=== PATIENT | male | born 1955 | race Caucasian/White ===

== ENCOUNTER → 2017-02-05 | Outpatient (CLI) | payer OTHER ==
[~2017-02-05] MED LIST: ASPI-621 PO; HYDR1TAB20 PO; IRON PO; NAPR500T4 PO; OMEP-110 PO; OXYC1TAB9 PO; RABE20TA26 PO; [UNRECOGNIZED DRUG - OTHER] TP
[2017-02-05 09:36] LABS: HEMATOCRIT 46.5 % (39.2-51.8); HEMOGLOBIN 15.9 g/dL (13.7-18.0); WHITE BLOOD COUNT 5.6 x10^3/uL (3.4-10)
[2017-02-05 09:39] LABS: BLOOD UREA NITROGEN 17 mg/dL (7-18)
== END | disposition home or self-care (01) ==
LOC: STAR 08:32
PROVIDERS: ATTEND Orthopaedic Surgery
DX: Z01.818 Encounter for other preprocedural examination (principal); M17.12 Unilateral primary osteoarthritis, left knee; K21.9 Gastro-esophageal reflux disease without esophagitis
CPT/HCPCS: 36415; 80048; 81003; 85025; 87081; 93005

== ENCOUNTER 2017-02-16 07:28 | Inpatient (IN) | payer OTHER ==
[~2017-02-16] VITALS: Ht 182.9 cm; Wt 114.0 kg
[~2017-02-16 07:28] MED LIST changes: -ASPI-621 PO; -OXYC1TAB9 PO
[2017-02-16] MEDS ORDERED: VANCOMYCIN PER PHARMACY MC STA (07:37)
[2017-02-16] MEDS ORDERED: LACTATED RINGERS 1,000 ML IV SCH (07:52)
[2017-02-16] MEDS ORDERED: SODIUM CHLORIDE 0.9% 100 ML ONE (08:01)
[2017-02-16] MEDS ORDERED: TRANEXAMIC ACID 100 MG/ML, 10ML ONE (08:01)
[2017-02-16] MEDS ORDERED: morphine SULFATE/PF 1 MG/ML, 10ML ONE (08:01)
[2017-02-16] MEDS ORDERED: EPINEPHRINE 1 MG/ML, 1ML ONE (08:01)
[2017-02-16] MEDS ORDERED: KETOROLAC 60 MG/2 ML ONE (08:01)
[2017-02-16] MEDS ORDERED: ROPivacaine/PF 0.2%, 10 ML ONE ×2 (08:03→10:02)
[2017-02-16 08:32] VITALS: BP 145/93
[2017-02-16] MEDS ORDERED: FENTANYL PF 250 MCG/5ML ONE (08:51)
[2017-02-16] MEDS ORDERED: MIDAZOLAM 1 MG/ML, 2ML ONE (08:51)
[2017-02-16] MEDS ORDERED: VANCOMYCIN 2,000 MG in SODIUM CHLORIDE 0.9% 500 ML IV ONE (09:00)
[2017-02-16] MEDS ORDERED: NEOSTIGMINE 1 MG/ML, 10ML ONE (09:30)
[2017-02-16] MEDS ORDERED: GLYCOPYRROLATE 0.2MG/1ML, 5ML ONE (09:30)
[2017-02-16] MEDS ORDERED: ONDANSETRON 2MG/ML, 2ML ONE (09:31)
[2017-02-16] MEDS ORDERED: CEFAZOLIN 1,000 MG ONE ×2 (09:31)
[2017-02-16] MEDS ORDERED: PROPOFOL 10 MG/ML, 20ML ONE (09:31)
[2017-02-16] MEDS ORDERED: ROCURONIUM 10 MG/ML,10ML ONE (09:31)
[2017-02-16] MEDS ORDERED: DEXAMETHASONE 4 MG/ML, 1ML ONE (09:31)
[2017-02-16] MEDS ORDERED: METOCLOPRAMIDE 5 MG/ML, 2ML ONE (10:03)
[2017-02-16] MEDS ORDERED: EPHEDRINE 50 MG/ML, 1ML IVPush PRN (11:00)
[2017-02-16] MEDS ORDERED: ALBUTEROL SULFATE 2.5 MG/3 ML NPPB PRN (11:00)
[2017-02-16] MEDS ORDERED: ONDANSETRON 2MG/ML, 2ML IVPush PRN ×2 (11:00→13:00)
[2017-02-16] MEDS ORDERED: FENTANYL PF 100 MCG/2ML IV PRN (11:00)
[2017-02-16] MEDS ORDERED: MEPERIDINE/PF 25MG/0.5ML IVPush PRN (11:00)
[2017-02-16] MEDS ORDERED: METOPROLOL 1 MG/ML, 5ML IV PRN (11:00)
[2017-02-16] MEDS ORDERED: OXYcodone 5 MG/5 ML ORAL.SOL UDC PO PRN (11:00)
[2017-02-16] MEDS ORDERED: hydrALAzine 20 MG/ML, 1ML IV PRN (11:00)
[2017-02-16] MEDS ORDERED: PROMETHAZINE 25 MG/ML, 1ML IV PRN (11:00)
[2017-02-16] MEDS ORDERED: HYDROmorphone 1 MG/ML, 1ML IV PRN (11:00)
[2017-02-16] MEDS ORDERED: LABETALOL 5MG/ML, 20ML IV PRN (11:00)
[2017-02-16] MEDS ORDERED: OXYcodone 5 MG/5 ML ORAL.SOL UDC ONE (11:35)
[2017-02-16] MEDS ORDERED: ACETAMINOPHEN 650 MG/20.3 ML UDC ONE (11:35)
[2017-02-16] MEDS ORDERED: ACETAMINOPHEN 650 MG/20.3 ML UDC PO PRN (12:00)
[2017-02-16] MEDS ORDERED: SENNA/DOCUSATE TABLET PO PRN (13:00)
[2017-02-16] MEDS ORDERED: DIAZEPAM 5 MG TABLET PO PRN (13:00)
[2017-02-16] MEDS ORDERED: HYDROcodone/APAP 7.5-325MG/15ML UDC PO PRN (13:00)
[2017-02-16] MEDS ORDERED: SCOPOLAMINE 1MG PATCH TD SCH (13:00)
[2017-02-16] MEDS ORDERED: BISACODYL 10 MG SUPP PR PRN (13:00)
[2017-02-16] MEDS ORDERED: ZOLPIDEM 5MG TABLET PO PRN (13:00)
[2017-02-16] MEDS ORDERED: ACETAMINOPHEN 325 MG TABLET PO PRN (13:00)
[2017-02-16] MEDS ORDERED: ALUMINUM/MAG/SIMETHICONE 30 ML UDC PO PRN (13:00)
[2017-02-16] MEDS ORDERED: DIPHENHYDRAMINE 25 MG CAPSULE PO PRN (13:00)
[2017-02-16] MEDS ORDERED: MAGNESIUM HYDROXIDE 8%, 30ML UDC PO PRN (13:00)
[2017-02-16 14:36] VITALS: BP 130/89
[2017-02-16] MEDS: POTASSIUM CHLORIDE 10 MEQ in D5%-0.45% NACL 1,000 ML IV SCH (15:42)
[2017-02-16 20:04] VITALS: BP 113/75
[2017-02-16] MEDS: DOCUSATE 100 MG CAPSULE PO SCH (20:08)
[2017-02-16] MEDS: OXYcodone IR 5MG TABLET PO PRN (20:08)
[2017-02-16] MEDS: CEFAZOLIN PMX 1GM/50ML 50 ML IVPB SCH (20:08)
[2017-02-16] MEDS ORDERED: VANCOMYCIN PMX 1GM/200ML 200 ML IVPB ONE (21:30)
[2017-02-17] MEDS: OXYcodone IR 5MG TABLET PO PRN ×4 (00:09→12:28)
[2017-02-17 00:12] VITALS: BP 131/82
[2017-02-17] MEDS: CEFAZOLIN PMX 1GM/50ML 50 ML IVPB SCH (04:03)
[2017-02-17 04:31] VITALS: BP 112/74
[2017-02-17] MEDS ORDERED: ENOXAPARIN 30 MG/0.3 ML SQ SCH (06:00)
[2017-02-17] MEDS: DOCUSATE 100 MG CAPSULE PO SCH (07:56)
[2017-02-17 08:37] VITALS: BP 102/70
[2017-02-17] MEDS ORDERED: MULTIVITAMINS/MINERALS TABLET PO SCH (09:00)
[2017-02-17] MEDS: POTASSIUM CHLORIDE 10 MEQ in D5%-0.45% NACL 1,000 ML IV SCH (09:06)
[2017-02-17] MEDS ORDERED: KETOROLAC 30 MG/1 ML IV SCH (12:00)
[2017-02-17] MEDS ORDERED: OXYC1TAB9 PO (14:18)
[2017-02-17] MEDS ORDERED: ASPI-621 PO (14:19)
== END 2017-02-17 14:30 | disposition home or self-care (01) | DRG 470 ==
LOC: ORIP 07:28 → 4NOR 12:25
PROVIDERS: ADMIT Orthopaedic Surgery; ATTEND Orthopaedic Surgery
PROC: 0SRD0J9 Replacement of Left Knee Joint with Synthetic Substitute, Cemented, Open Approach (ICD-10-PCS; principal; 2017-02-16 10:00)
DX: M17.12 Unilateral primary osteoarthritis, left knee (principal); K21.9 Gastro-esophageal reflux disease without esophagitis; Z87.891 Personal history of nicotine dependence; Z88.8 Allergy status to other drugs, medicaments and biological substances
CPT/HCPCS: C1713; J0171; J0690; J1100; J1650; J1885; J2250; J2274; J2405; J2704; J2710; J2795; J3010; J3370; J3480; J3490; C1776; J2765; J7040; J7120

== ENCOUNTER → 2018-07-01 | Outpatient (CLI) | payer OTHER ==
[~2018-07-01] MED LIST changes: +ASPI81TA45 PO; +NAPR-685 PO; -NAPR500T4 PO; +OMEP20TA62 PO; +OXYC-432 PO; +PREG150C PO; +TRAM50TA2 PO; +iron PO
[2018-07-01 09:02] LABS: MICROSCOPIC NOT IND
[2018-07-01 09:08] LABS: CULTURE INDICATED? NO
== END | disposition home or self-care (01) ==
LOC: STAR 08:09
PROVIDERS: ATTEND Neurological Surgery
DX: Z01.818 Encounter for other preprocedural examination (principal); M47.812 Spondylosis without myelopathy or radiculopathy, cervical region; M54.17 Radiculopathy, lumbosacral region; M51.26 Other intervertebral disc displacement, lumbar region; M54.16 Radiculopathy, lumbar region
CPT/HCPCS: 72050; 81003; 93005

== ENCOUNTER 2018-07-07 11:33 | Inpatient (IN) | payer OTHER ==
[~2018-07-07] VITALS: Ht 185.4 cm; Wt 113.4 kg
[2018-07-07] MEDS ORDERED: GABAPENTIN 300 MG CAPSULE PO ONE ×2 (12:00→12:30)
[2018-07-07] MEDS ORDERED: ACETAMINOPHEN 500 MG TABLET PO ONE ×2 (12:00→12:30)
[2018-07-07] MEDS ORDERED: OXYcodone IR 5MG TABLET PO ONE ×2 (12:00→12:30)
[2018-07-07 12:03] VITALS: BP 129/87
[2018-07-07] MEDS ORDERED: LACTATED RINGERS 1,000 ML IV SCH (12:08)
[2018-07-07] MEDS ORDERED: FENTANYL PF 250 MCG/5ML ONE (13:02)
[2018-07-07] MEDS ORDERED: MIDAZOLAM 1 MG/ML, 2ML ONE (13:02)
[2018-07-07] MEDS ORDERED: MINERAL OIL 10 ML VIAL MC ONE (13:53)
[2018-07-07] MEDS ORDERED: BUPIVACAINE/EPI 0.5% 1:200K ONE (13:53)
[2018-07-07] MEDS ORDERED: THROMBIN 20,000 UNIT VIAL TP ONE ×2 (13:54→15:37)
[2018-07-07] MEDS ORDERED: BACITRACIN 50,000 UNIT ONE (13:54)
[2018-07-07] MEDS ORDERED: MICROFIBRILLAR COLLAGEN 1 GM TP ONE (13:56)
[2018-07-07] MEDS ORDERED: DEXAMETHASONE 4 MG/ML, 1ML ONE (14:21)
[2018-07-07] MEDS ORDERED: LIDOCAINE-MPF 2% ,5ML ONE (14:21)
[2018-07-07] MEDS ORDERED: ROCURONIUM 10 MG/ML,10ML ONE (14:21)
[2018-07-07] MEDS ORDERED: CEFAZOLIN 1,000 MG ONE (14:21)
[2018-07-07] MEDS ORDERED: ONDANSETRON 2MG/ML, 2ML ONE (14:21)
[2018-07-07] MEDS ORDERED: PROPOFOL 10 MG/ML, 20ML ONE (14:21)
[2018-07-07] MEDS ORDERED: SUCCINYLCHOLINE 20 MG/ML, 10ML ONE (14:21)
[2018-07-07] MEDS ORDERED: ONDANSETRON ODT 8 MG PO PRN (15:00)
[2018-07-07] MEDS ORDERED: PROMETHAZINE 25 MG/ML, 1ML IV PRN (15:00)
[2018-07-07] MEDS ORDERED: OXYcodone 5 MG/5 ML ORAL.SOL UDC PO PRN (15:00)
[2018-07-07] MEDS ORDERED: HYDROmorphone 2 MG/ML, 1ML IVPush PRN (15:00)
[2018-07-07] MEDS ORDERED: MEPERIDINE/PF 25MG/0.5ML IVPush PRN (15:00)
[2018-07-07] MEDS ORDERED: DIAZEPAM 5 MG/ML, 2ML IVPush PRN (15:00)
[2018-07-07] MEDS ORDERED: ONDANSETRON 2MG/ML, 2ML IV PRN (15:00)
[2018-07-07] MEDS: FENTANYL PF 100 MCG/2ML IV PRN ×3 (16:44→18:05)
[2018-07-07] MEDS ORDERED: methylPREDNISolone SOD SUCC 125 MG/2 ML IVPush ONE (16:46)
[2018-07-07] MEDS ORDERED: OXYcodone 5 MG/5 ML ORAL.SOL UDC ONE (17:49)
[2018-07-07] MEDS ORDERED: FENTANYL PF 100 MCG/2ML ONE (17:49)
[2018-07-07] MEDS ORDERED: HYDROmorphone 1 MG/ML, 1ML VIAL ONE (18:06)
[2018-07-07] MEDS ORDERED: HYDROcodone/APAP 5/325 TABLET PO PRN (19:30)
[2018-07-07] MEDS ORDERED: BISACODYL 10 MG SUPP PR PRN (19:30)
[2018-07-07] MEDS ORDERED: morphine SULFATE 10 MG/ML, 1ML IV PRN (19:30)
[2018-07-07] MEDS ORDERED: TIZANIDINE 4MG TABLET PO PRN (19:30)
[2018-07-07] MEDS ORDERED: OXYcodone/APAP 5/325MG TABLET PO PRN (19:30)
[2018-07-07] MEDS ORDERED: MAGNESIUM HYDROXIDE 8%, 30ML UDC PO PRN (19:30)
[2018-07-07] MEDS ORDERED: LABETALOL 5MG/ML, 20ML IV PRN (19:30)
[2018-07-07] MEDS ORDERED: DIPHENHYDRAMINE 50 MG/ML, 1ML IVPush PRN (19:30)
[2018-07-07] MEDS ORDERED: NS + 20MEQ KCL 1,000 ML IV SCH (19:30)
[2018-07-07 20:37] VITALS: BP 154/94
[2018-07-07] MEDS: CEFAZOLIN PMX 1GM/50ML 50 ML IVPB SCH (20:58)
[2018-07-07] MEDS: PREGABALIN 150 MG CAPSULE PO SCH (20:58)
[2018-07-08 00:04] VITALS: BP 133/80
[2018-07-08 03:51] VITALS: BP 137/79
[2018-07-08] MEDS: CEFAZOLIN PMX 1GM/50ML 50 ML IVPB SCH (04:37)
[2018-07-08] MEDS ORDERED: OMEPRAZOLE 20 MG CAPSULE.DR PO SCH (06:00)
[2018-07-08 06:56] VITALS: BP 117/85
[2018-07-08] MEDS: PREGABALIN 150 MG CAPSULE PO SCH (07:40)
[2018-07-08] MEDS ORDERED: SENNA/DOCUSATE TABLET PO SCH (09:00)
[2018-07-08] MEDS ORDERED: FERROUS SULFATE 325 MG TABLET PO SCH (09:00)
[2018-07-08 10:10] VITALS: BP 114/75
[2018-07-08] MEDS ORDERED: SENN-31 PO (10:38)
[2018-07-08] MEDS ORDERED: BISA10SU54 PR (10:39)
[2018-07-08] MEDS ORDERED: HYDR-3240 PO (10:40)
[2018-07-08] MEDS ORDERED: MAGN400O7 PO (10:41)
[2018-07-08] MEDS ORDERED: TIZA4CAP PO (10:44)
== END 2018-07-08 11:12 | disposition home or self-care (01) | DRG 518 ==
LOC: OUT 11:33 → 4NOR 18:51 → OUT 18:55 → DCLOUNGE 07-08 10:56
PROVIDERS: ADMIT Neurological Surgery; ATTEND Neurological Surgery
PROC: 01N10ZZ Release Cervical Nerve, Open Approach (ICD-10-PCS; 2018-07-07)
PROC: 00NY0ZZ Release Lumbar Spinal Cord, Open Approach (ICD-10-PCS; 2018-07-07)
PROC: 01NB0ZZ Release Lumbar Nerve, Open Approach (ICD-10-PCS; 2018-07-07)
PROC: 01NR0ZZ Release Sacral Nerve, Open Approach (ICD-10-PCS; 2018-07-07)
PROC: 0SB40ZZ Excision of Lumbosacral Disc, Open Approach (ICD-10-PCS; 2018-07-07)
PROC: 4A11X4G Monitoring of Peripheral Nervous Electrical Activity, Intraoperative, External Approach (ICD-10-PCS; 2018-07-07)
PROC: 0RB30ZZ Excision of Cervical Vertebral Disc, Open Approach (ICD-10-PCS; principal; 2018-07-07 15:30)
PROC: 0RR30JZ Replacement of Cervical Vertebral Disc with Synthetic Substitute, Open Approach (ICD-10-PCS; 2018-07-07 15:30)
DX: M48.02 Spinal stenosis, cervical region (principal); M47.12 Other spondylosis with myelopathy, cervical region; M50.022 Cervical disc disorder at C5-C6 level with myelopathy; M51.06 Intervertebral disc disorders with myelopathy, lumbar region; M51.16 Intervertebral disc disorders with radiculopathy, lumbar region; G47.30 Sleep apnea, unspecified; M19.90 Unspecified osteoarthritis, unspecified site; Z96.653 Presence of artificial knee joint, bilateral; K22.70 Barrett's esophagus without dysplasia; K21.9 Gastro-esophageal reflux disease without esophagitis; G89.29 Other chronic pain; J45.909 Unspecified asthma, uncomplicated; Z88.2 Allergy status to sulfonamides; Z87.891 Personal history of nicotine dependence; Z80.1 Family history of malignant neoplasm of trachea, bronchus and lung; Z88.1 Allergy status to other antibiotic agents
CPT/HCPCS: 72040; 72100; J3490; C1776; G0378; J0690; J1100; J1170; J2250; J2405; J2704; J2710; J3010; J0330; J2930; J7120

== ENCOUNTER → 2018-08-09 | Outpatient (CLI) | payer OTHER ==
[~2018-08-09] MED LIST changes: +BISA10SU54 PR; +HYDR-3240 PO; +MAGN400O7 PO; +SENN-31 PO; +TIZA4CAP PO
== END | disposition home or self-care (01) ==
LOC: RAD 10:17
PROVIDERS: ATTEND Registered Nurse
DX: M50.10 Cervical disc disorder with radiculopathy, unspecified cervical region (principal)
CPT/HCPCS: 72050